=== PATIENT | female | born 1980 | race Caucasian/White ===

== ENCOUNTER 2016-09-06 12:23 | Emergency (ER) | payer BC ==
[2016-09-06] MEDS ORDERED: ONDANSETRON 4 MG TAB.RAPDIS ONE (12:34)
[2016-09-06] MEDS ORDERED: ONDANSETRON 4 MG TAB.RAPDIS PO ONE (12:37)
[2016-09-06 12:51] LABS: Hematocrit 38.5 % (37.0-47.0); Hemoglobin 13.3 gm/dL (12.5-16.0); Mean Cell Volume 91.7 fl (78-100); Mean Corpuscular Hemoglobin 31.7 pg (27-31); Mean Corpuscular Hgb Conc 34.5 g/dl (32-36); Mean Platelet Volume 10.7 fl (6.0-9.5); Neutrophil # 2.5 K/mm3 (1.3-6.0); Platelet Count 212 K/mm3 (150-450); White Blood Count 5.1 K/mm3 (4.0-10.5)
--- NOTE | 2016-09-06 12:53 | ERNOTE ---
Neuro HPI ER Record Presenting Symptoms: numbness - left side of nose and cheek, and left hand Time Seen by Provider: 09/06/16 12:34 Source: patient Exam Limitations: no limitations Allergies/Adverse Reactions: Allergies Allergy/AdvReac Type Severity Reaction Status Date / Time amoxicillin [Amoxicillin] Allergy Mild Hives Verified 12/25/13 09:25 aripiprazole [From Abilify] AdvReac Mild EPS Verified 12/25/13 09:25 Home Medications: HOME MEDICATIONS NK [No Home Medication] 12/25/13 [Last Taken Unknown] - History of Present Illness Narrative: Pt had onset of facial numbness this past week, has been vomiting q am for 1-2 weeks. This am she had onset of left arm numbness and tingling and presented to the walk in clinic. Due to the risk of CVA pt was referred to the ED. Onset: gradual onset - face, sudden onset - arm this morning, continues in ER Severity: moderate - Character of Deficits Altered sensation: Present: LUE, facial (lt) Baseline Cognition: Present: alert, oriented x 4 Baseline Gait: Present: walks w/o assistance Associated Symptoms: Reports: sweating Review of Systems - Review of Systems Constitutional: Present: recent illness - cold EYE: Present: no symptoms reported ENT: Present: nose congestion, nasal drainage Respiratory: Present: cough. Absent: shortness of breath Cardiology: Present: no symptoms reported Gastrointestinal/Abdominal: Present: vomiting Genitourinary: Present: no symptoms reported Musculoskeletal: Present: no symptoms reported Skin: Present: no symptoms reported Neurological: Present: no symptoms reported Endocrine: Present: no symptoms reported Hematologic/Lymphatic: Present: no symptoms reported Psych: Present: anxiety - Patient's Past Medical History Patient History - Medical: Anxiety Patient History - Cardiac/Respiratory: No pertinent hx Physical Exam - Physical Exam General Appearance: Present: wd/wn, alert, moderate distress, anxious Eye Exam: Normal inspection: bilateral, PERRL: bilateral, EOMI: bilateral Ears, Nose, Throat: Present: normal ENT inspection, normal pharynx Neck: Present: normal inspection, nontender Respiratory: Present: no respiratory distress, normal breath sounds, lungs clear Cardiovascular/Chest: Present: regular rate, rhythm, no murmur Back Exam: Present: normal inspection, normal range of motion Extremity Exam: Present: normal inspection, non-tender, normal range of motion Neurological Exam: Present: alert, oriented, other - subjective sensory decrease left face, left arm, and hand. Absent: motor weakness Skin Exam: Present: normal color, warm/dry Stephanie Coma Scale - Assess Eye Opening: Spontaneous Motor: Obeys Commands Verbal: Oriented - Total Coma Scale Total: 15 Initial Stroke Assessment - Date/Time of assessment Stroke Scale Date: 09/06/16 Stroke Scale Time: 12:47 - NIH Stroke Scale Level of Consciousness: Alert LOC Questions (Year and Age): Answers both correctly LOC Commands (open/close eyes/fist): Performs both correctly Lateral Gaze Paresis: None Visual Field Loss: No visual loss Facial Palsy: Normal movement Right Arm Motor (10 sec hold): No drift Left Arm Motor (10 sec hold): No drift Right Leg Motor (5 sec hold): No drift Left Leg Motor (5 sec hold): No drift Limb Ataxia (finger/nose heel/cardona): Absent Sensory Loss (pinprick arms/legs/face): Mild, aware yet dulled Language Aphasia (description/naming/reading): No aphasia; normal Dysarthria (speech clarity): Normal articulation Neglect Inattention (visual/tactile/auditory/spatial/person): No neglect Initial Stroke Scale Score:: 1 ED Progress - Results and Orders Patient's Lab Results:: I have reviewed the patient's lab results. Results and Orders: Laboratory Tests 09/06/16 09/06/16 09/06/16 12:45 12:45 12:45 WBC 5.1 Hgb 13.3 Hct 38.5 Plt Count 212 PT 10.7 INR (Anticoag Therapy) 1.03 PTT (Gage) 29.2 Sodium 141 Potassium 3.3 L Chloride 104 Carbon Dioxide 25.0 Anion Gap 15.3 H BUN 8 Creatinine 0.67 Est GFR (Non-Af Amer) 107 Random Glucose 95 Calcium 9.2 Total Bilirubin 0.4 AST 15 ALT 16 L Alkaline Phosphatase 33 L Total Protein 7.8 Albumin 4.0 - Vital Signs Patient's Vital Signs:: I have reviewed the patient's vital signs. - EKG EKG: NSR EKG read: Interp. by me - CT/Ultrasound CT/Ultrasound Narrative: Low-attenuation within the right occipital lobe with loss of Witt-white junction. suspicious for acute/subacute cortical infarct. f/u MRI brain recommended. No other acute intracranial processes. - Progress/Reassessment Progress Note-Subjective: 09/06/16 13:[address] [facility] in [place], [place]. He agrees to accept the patient in transfer. He will arrange a primary care physician as accepting and call us with that information. Departure Clinical Impression: Cerebrovascular event - Departure Disposition: Other health care facility Condition: Fair Referrals: Mayra Flores DO [Primary Care Provider] -
[2016-09-06 13:02] LABS: Prothrombin Time (Patient) 10.7 Seconds (9.4-11.4)
[2016-09-06 13:04] LABS: Anion Gap 15.3 mmol/L (6.8-13.8); BUN/Creatinine Ratio 11.9 (9.0-21.6); Bilirubin, Total 0.4 mg/dL (0.0-1.1); Ca. Corrected For Albumin 8.9 mg/dL (8.4-10.2); Calcium * 9.2 mg/dL (7.9-10.9); INR 1.03 INR (0.90-1.10); Partial Thrombolplastin Time 29.2 Seconds (24-32); Potassium 3.3 mmol/L (3.4-4.6); Total Protein 7.8 gm/dL (6.2-8.2)
[2016-09-06 13:42] VITALS: BP 149/98
== END 2016-09-06 14:31 | disposition short-term general hospital (02) ==
LOC: ER 12:23
DX: I67.89 Other cerebrovascular disease (principal)